=== PATIENT | male | born 1960 | race Caucasian/White ===

== ENCOUNTER 2020-02-26 06:24 | Emergency (ER) | payer BC ==
[~2020-02-26] VITALS: Ht 170.2 cm; Wt 86.2 kg
--- OUTSIDE RECORDS SUMMARY | ~2020-02-26 | XMS | Clinical Summary ---
Demographics + + + | Address | [address] | | | [place] [address] | + + + | Home Phone | | + + + | Preferred Language | Unknown | + + + | Marital Status | | + + + | Catholic Affiliation | 1041 | + + + | Race | White | + + + | Ethnic Group | Not or | + + + Author + + + | Author | [facility] | | | and [place] | + + + | Organization | [facility] | | | and [place] | + + + | Address | Unknown | + + + | Phone | Unavailable | + + + Support + + + + + | Name | Relationship | Address | Phone | + + + + + | Petr Rivera | ECON | Unknown | | + + + + + | Petr Rivera | ECON | [place] [address] | | + + + + + Care Team Providers + +------+ + | Care Escrow Officer Name | Role | Phone | + +------+ + | Regine Tate PA-C | PCP | | + +------+ + Allergies Not on File Medications Not on file Active Problems Not on file Social History + +-------+ +--------+------+ | Tobacco Use | Types | Packs/Day | Years | Date | | | | | Used | | + +-------+ +--------+------+ | Never Assessed | | | | | + +-------+ +--------+------+ + + + | Sex Assigned at | Date Recorded | | | | + + + | Not on file | | + + + Last Filed Vital Signs Not on file Plan of Treatment + + +-------+ + | Health Maintenance | Due Date | Last | Comments | | | | Done | | + + +-------+ + | Vaccine: | | | | | Dtap/Tdap/Td (1 - | 0 | | | | Tdap) | | | | + + +-------+ + | Vaccine: Zoster (1 | | | | | of 2) | 1 | | | + + +-------+ + | Vaccine: Influenza | | | | | (#1) | 0 | | | + + +-------+ + Results Not on filefrom Last 3 Months"
--- OUTSIDE RECORDS SUMMARY | ~2020-02-26 | XMS | Encounter Summary ---
Demographics + + + | Address | [address] | | | [place] [address] | + + + | Home Phone | | + + + | Preferred Language | Unknown | + + + | Marital Status | | + + + | Confucianism Affiliation | 1041 | + + + | Race | White | + + + | Ethnic Group | Not or | + + + Author + + + | Author | [facility] | | | and [place] | + + + | Organization | [facility] | | | and [...] + | Petr Rivera | ECON | [place] [address] | | + + + + + Care Team Providers + +------+ + | Care Equipment Scheduler Name | Role | Phone | + +------+ + PCP | Unavailable | + +------+ + Encounter Details +--------+ + + + + | Date | Type | Department | Care Team | Description | +--------+ + + + + | 09/12/ | Hospital | [facility] | [place], | AMI NOS, unspecified | | 2010 - | Encounter | CONVERSION DEP [phone] | Avelino Freire, | (FORMERLY [facility]) | | | | [address] | [address] | | | 09/14/ | | [place], [place] | [place], [place] | | | 2010 | | [address] | [phone] | | | | | [phone] | [phone] | | | | | | | | +--------+ + + + + Social History + +-------+ +--------+------+ | Tobacco [...] on file | | + + + documented as of this encounter Plan of Treatment Not on filedocumented as of this encounter Procedures + +--------+ + + + | Procedure Name | Priori | Date/Time | Associated Diagnosis | Comments | | | ty | | | | + +--------+ + + + | CV CARDIAC PROCEDURE | Routin | 09/12/2010 | | Results for this | | | e | 4:45 PM | | procedure are in the | | | | PST | | results section. | + +--------+ + + + | CV CARDIAC PROCEDURE | Routin | 09/12/2010 | | Results for this | | | e | 4:45 PM | | procedure are in the | | | | PST | | results section. | + +--------+ + + + documented in this encounter Results CV CARDIAC PROCEDURE (09/12/2010 4:45 PM PST) + + | Specimen | + + | | + + + + + | Narrative | Performed At | + + + | PROCEDURES 1. Left heart catheterization and coronary angiography. | | | 2. Intercoronary stent implantation into the right coronary artery. | | | OPERATIVE NOTE The patient came in as an acute inferior myocardial | | | infarction. RESULTS Aortic pressure 98/73, with a mean of 86. | | | Left ventricular pressure is 106/22, with an EDP of 38. | | | ARTERIOGRAPHY 1. The left main coronary artery is normal. 2. The | | | left anterior descending has a proximal 30% to 40% smooth | | | narrowing. 3. The left circumflex is a small nondominant artery. It | | | is angiographically unremarkable. 4. 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 | | | LEFT VENTRICULOGRAM The left ventriculogram done after intervention | | | showed inferobasal hypokinesis to akinesis with overall ejection | | | fraction of 50%. DESCRIPTION OF PROCEDURE I elected to intervene | | | upon the right coronary artery. A 6-Ghanaian Lee right guide | | | catheter was placed in the right coronary os, and an 0.14 Exercise Specialist-50 | | | guidewire was advanced across the total occlusion with minimal | | | resistance. A 3 x 20 mm Harrold angioplasty balloon was advanced to the | | | total occlusion, inflated up to 8 atmospheres for 20 seconds, | | | deflated and then smoothly withdrawn. This did open up the artery | | | nicely. A 4 x 18 mm Vision stent catheter was then placed with cine | | | assistance and inflated up to 11 atmospheres for 15 seconds, deflated | | | and then reinflated to 10 atmospheres for 10 seconds. Hand injections | | | showed excellent results with 0% residual stenosis. There was minor | | | nonobstructive disease diffusely down the vessel. Pharmacologically, | | | he came in on a heparin drip, and he was give an additional 2000 | | | units of intervascular heparin. An ACT was 246 seconds prior to the | | | beginning of the interventional portion of the case. He was given a | | | double bolus and drip of Integrilin and orally loaded with Plavix at | | | the termination of the case. ESTIMATED BLOOD LOSS Less than 50 | | | mL. P P | | | [id number]/[id number]/ Read by AVELINO CHATMAN MD 09/12/2010 | | | 04:52 P Electronically signed by Avelino Chatman MD on | | | 07/23/2011 3:10 PM | | + + + + + | Procedure Note | + + | Ryan, Rad Conversion - 03/04/2019 5:16 PM PDT PROCEDURES | | 1. Left heart catheterization and coronary angiography. | | 2. Intercoronary stent implantation into the right coronary artery. | | | | OPERATIVE NOTE | | The patient came in as an acute inferior myocardial infarction. | | | | RESULTS | | Aortic pressure 98/73, with a mean of 86. | | Left ventricular pressure is 106/22, with an EDP of 38. | | | | ARTERIOGRAPHY | | 1. The left main coronary artery is normal. | | 2. The left anterior descending has a proximal 30% to 40% smooth | | narrowing. | | 3. The left circumflex is a small nondominant artery. It is | | angiographically unremarkable. | | 4. The right coronary artery is a huge dominant artery that is totally | | occluded proximally. | | | | LEFT VENTRICULOGRAM | | The left ventriculogram done after intervention showed inferobasal | | hypokinesis to akinesis with overall ejection fraction of 50%. | | | | DESCRIPTION OF PROCEDURE | | I elected to intervene upon the right coronary artery. A 6-Ghanaian | | Lee right guide catheter was placed in the right coronary os, and | | an 0.14 Exercise Specialist-50 guidewire was advanced across the total occlusion with | | minimal resistance. A 3 x 20 mm Harrold angioplasty balloon was advanced to | | the total occlusion, inflated up to 8 atmospheres for 20 seconds, | | deflated and then smoothly withdrawn. This did open up the artery | | nicely. A 4 x 18 mm Vision stent catheter was then placed with cine | | assistance and inflated up to 11 atmospheres for 15 seconds, deflated | | and then reinflated to 10 atmospheres for 10 seconds. Hand injections | | showed excellent results with 0% residual stenosis. There was minor | | nonobstructive disease diffusely down the vessel. Pharmacologically, he | | came in on a heparin drip, and he was give an additional 2000 units of | | intervascular heparin. An ACT was 246 seconds prior to the beginning of | | the interventional portion of the case. He was given a double bolus and | | drip of Integrilin and orally loaded with Plavix at the termination of | | the case. | | | | ESTIMATED BLOOD LOSS | | Less than 50 mL. | | | | | | P | | P | | [facility]/[id number]/ | | | | Read by | | AVELINO CHATMAN MD 09/12/2010 04:52 P | | | | | + + CV CARDIAC PROCEDURE (09/12/2010 4:45 PM PST) + + | Specimen | + + | | + + + + + | Narrative | Performed At | + + + | PROCEDURES 1. Left heart catheterization and coronary angiography. | | | 2. Intercoronary stent implantation into the right coronary artery. | | | OPERATIVE NOTE The patient came in as an acute inferior myocardial | | | infarction. RESULTS Aortic pressure 98/73, with a mean of 86. | | | Left ventricular pressure is 106/22, with an EDP of 38. | | | ARTERIOGRAPHY 1. The left main coronary artery is normal. 2. The | | | left anterior descending has a proximal 30% to 40% smooth | | | narrowing. 3. The left circumflex is a small nondominant artery. It | | | is angiographically unremarkable. 4. 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 | | | LEFT VENTRICULOGRAM The left ventriculogram done after intervention | | | showed inferobasal hypokinesis to akinesis with overall ejection | | | fraction of 50%. DESCRIPTION OF PROCEDURE I elected to intervene | | | upon the right coronary artery. A 6-Ghanaian Lee right guide | | | catheter was placed in the right coronary os, and an 0.14 Exercise Specialist-50 | | | guidewire was advanced across the total occlusion with minimal | | | resistance. A 3 x 20 mm Harrold angioplasty balloon was advanced to the | | | total occlusion, inflated up to 8 atmospheres for 20 seconds, | | | deflated and then smoothly withdrawn. This did open up the artery | | | nicely. A 4 x 18 mm Vision stent catheter was then placed with cine | | | assistance and inflated up to 11 atmospheres for 15 seconds, deflated | | | and then reinflated to 10 atmospheres for 10 seconds. Hand injections | | | showed excellent results with 0% residual stenosis. There was minor | | | nonobstructive disease diffusely down the vessel. Pharmacologically, | | | he came in on a heparin drip, and he was give an additional 2000 | | | units of intervascular heparin. An ACT was 246 seconds prior to the | | | beginning of the interventional portion of the case. He was given a | | | double bolus and drip of Integrilin and orally loaded with Plavix at | | | the termination of the case. ESTIMATED BLOOD LOSS Less than 50 | | | mL. P P | | | CKR/[id number]/ Read by AVELINO CHATMAN MD 09/12/2010 | | | 04:52 P Electronically signed by Avelino Chatman MD on | | | 07/23/2011 3:10 PM | | + + + + + | Procedure Note | + + | Ryan, Rad Conversion - 03/04/2019 5:16 PM PDT PROCEDURES | | 1. Left heart catheterization and coronary angiography. | | 2. Intercoronary stent implantation into the right coronary artery. | | | | OPERATIVE NOTE | | The patient came in as an acute inferior myocardial infarction. | | | | RESULTS | | Aortic pressure 98/73, with a mean of 86. | | Left ventricular pressure is 106/22, with an EDP of 38. | | | | ARTERIOGRAPHY | | 1. The left main coronary artery is normal. | | 2. The left anterior descending has a proximal 30% to 40% smooth | | narrowing. | | 3. The left circumflex is a small nondominant artery. It is | | angiographically unremarkable. | | 4. The right coronary artery is a huge dominant artery that is totally | | occluded proximally. | | | | LEFT VENTRICULOGRAM | | The left ventriculogram done after intervention showed inferobasal | | hypokinesis to akinesis with overall ejection fraction of 50%. | | | | DESCRIPTION OF PROCEDURE | | I elected to intervene upon the right coronary artery. A 6-Ghanaian | | Lee right guide catheter was placed in the right coronary os, and | | an 0.14 Exercise Specialist-50 guidewire was advanced across the total occlusion with | | minimal resistance. A 3 x 20 mm Harrold angioplasty balloon was advanced to | | the total occlusion, inflated up to 8 atmospheres for 20 seconds, | | deflated and then smoothly withdrawn. This did open up the artery | | nicely. A 4 x 18 mm Vision stent catheter was then placed with cine | | assistance and inflated up to 11 atmospheres for 15 seconds, deflated | | and then reinflated to 10 atmospheres for 10 seconds. Hand injections | | showed excellent results with 0% residual stenosis. There was minor | | nonobstructive disease diffusely down the vessel. Pharmacologically, he | | came in on a heparin drip, and he was give an additional 2000 units of | | intervascular heparin. An ACT was 246 seconds prior to the beginning of | | the interventional portion of the case. He was given a double bolus and | | drip of Integrilin and orally loaded with Plavix at the termination of | | the case. | | | | ESTIMATED BLOOD LOSS | | Less than 50 mL. | | | | | | P | | P | | CKR/[id number]/ | | | | Read by | | AVELINO CHATMAN MD 09/12/2010 04:52 P | | | | | + + documented in this encounter Visit Diagnoses + + | Diagnosis | + + | Acute myocardial infarction, unspecified site, episode of care unspecified | + + documented in this encounter"
[~2020-02-26 06:24] MED LIST: CYCLOBENZAPRINE5 MG PO; LOVASTATIN10 MG PO; MOBIC15 MG PO; NEURONTIN300 MG PO; OMEPRAZOLE20 M1 PO; POTASSIUM99 M1 PO; SYNTHROID137 MCG PO; TOPROL XL25 MG PO; WELLBUTRIN XL150 MG PO
[2020-02-26] MEDS ORDERED: LEVOTHYROXINE150 MCG PO (06:39)
[2020-02-26] MEDS ORDERED: ATORVASTATIN CA40 MG PO (06:39)
--- NOTE | 2020-02-26 16:39 | EKG ---
[facility] [address] [place], [place] [address] Signed Sinus rhythm with short IN Inferior-posterior infarct , age undetermined Abnormal ECG No previous ECGs available Confirmed by SANDIE KIRBY DO ([id number]) on 02/26/2020 4:39:34 PM Electronically Signed By: SANDIE KIRBY DO 02/26/20 1639 PATIENT NAME: KEVIN ALARCON Electrocardiogram DATE OF : 62 PHYSICIAN: SANDIE KIRBY DO REPORT #: [id number] REPORT IS CONFIDENTIAL AND NOT TO BE RELEASED WITHOUT AUTHORIZATION
== END 2020-02-26 09:35 | disposition short-term general hospital (02) ==
LOC: ED 06:24
DX: I63.9 Cerebral infarction, unspecified (principal); I25.2 Old myocardial infarction; I10 Essential (primary) hypertension; E03.9 Hypothyroidism, unspecified; F17.200 Nicotine dependence, unspecified, uncomplicated; Z79.899 Other long term (current) drug therapy
CPT/HCPCS: 70450; 70496; 70498; 71045; 80053; 83735; 84484; 85025; 85610; 85730; 93005; 93010; 96374; 99284-25; J2997; Q3014

== ENCOUNTER 2024-11-27 05:25 | Day surgery (SDC) | payer BC ==
[2024-10-11 15:22] VITALS: BP 147/86
[2024-11-16 14:27] VITALS: BP 160/78
[2024-11-16 14:37] VITALS: BP 160/78
[2024-11-27] VITALS (12 sets, daily range): BP systolic 101–153; BP diastolic 53–82
[~2024-11-27] VITALS: Ht 170.2 cm; Wt 96.4 kg
[~2024-11-27 05:25] MED LIST changes: +ATORVASTATIN CA40 MG PO; +BAYER CHEWABLE81 MG PO; +CRESTOR40 MG PO; +FLUTICASONE PRO12 GM INH; +HYDROCODON-ACE1 EA10 PO; +HYDROCODONE BIT10 MG PO; +LACTATED RINGER'S 1,000 ML IV SCH; +LEVOTHYROXINE150 MCG PO; +LEVOTHYROXINE175 MCG PO; +METOPROLOL SUCC50 MG PO; +TRAMADOL HCL50 MG PO; +VARENICLINE TART1 MG PO; +XOPENEX HFA15 GM INH
[2024-11-27] MEDS ORDERED: SODIUM CHLORIDE 0.9% 500 ML IV ONE (06:21)
[2024-11-27] MEDS ORDERED: ondansetron HCL 4 MG/2 ML VIAL ONE (06:48)
[2024-11-27] MEDS ORDERED: MIDAZOLAM HCL 2 MG/2 ML VIAL ONE (06:48)
[2024-11-27] MEDS ORDERED: fentaNYL citrate 100 MCG/2 ML VIAL ONE (06:48)
[2024-11-27] MEDS ORDERED: propofoL 200 MG/20 ML VIAL ONE ×6 (06:48→08:53)
[2024-11-27] MEDS ORDERED: LIDOCAINE HCL 2% 5 ML SDV ONE (06:48)
[2024-11-27] MEDS ORDERED: BUPIVACAINE 0.75% IN DEXTROSE 2 ML AMP ONE (06:49)
[2024-11-27] MEDS ORDERED: ondansetron HCL 4 MG TAB PO SCH (07:00)
[2024-11-27] MEDS ORDERED: IBLOOD GLUCOSE TEST STRIP 1 EA TEST VI PRN ×2 (07:00→08:00)
[2024-11-27] MEDS ORDERED: LIDOCAINE HCL 1% 5 ML SDV INJ ONE (07:00)
[2024-11-27] MEDS ORDERED: PANTOPRAZOLE SODIUM 40 MG TABEC PO SCH (07:00)
[2024-11-27] MEDS ORDERED: TRANEXAMIC ACID IN NACL,ISO-OS 1,000 MG/100 ML PIGGYBACK IV SCH ×2 (07:00→12:15)
[2024-11-27] MEDS ORDERED: INTRA-ARTICULAR ANALGESIC INJECTION XX SCH (07:00)
[2024-11-27] MEDS ORDERED: GABAPENTIN 600 MG TAB PO SCH (07:00)
[2024-11-27] MEDS ORDERED: OXYCODONE HCL 5 MG TAB PO SCH (07:00)
[2024-11-27] MEDS ORDERED: CEFAZOLIN SODIUM 2 GM/20 ML SYR IV SCH ×2 (07:00→15:00)
--- NOTE | 2024-11-27 07:17 | NUR ---
PT NOT AVAILABLE FOR VISIT. PROVIDED PRAYER.
[2024-11-27] MEDS ORDERED: ACETAMINOPHEN 1,000 MG/100 ML VIAL ONE (07:34)
[2024-11-27] MEDS ORDERED: LABETALOL HCL 20 MG/4 ML VIAL ONE (07:47)
[2024-11-27] MEDS ORDERED: LACTATED RINGER'S 1,000 ML IV ONE (07:55)
[2024-11-27] MEDS ORDERED: fentaNYL citrate 50 MCG/ML SDV IV PRN (08:00)
[2024-11-27] MEDS ORDERED: PROCHLORPERAZINE EDISYLATE 10 MG/2 ML VIAL IV PRN (08:00)
[2024-11-27] MEDS ORDERED: ondansetron HCL 4 MG/2 ML VIAL IV PRN (08:00)
[2024-11-27] MEDS ORDERED: droPERidol 5 MG/2 ML VIAL IV PRN (08:00)
[2024-11-27] MEDS ORDERED: NALOXONE HCL 0.4 MG SYR IV PRN (08:00)
[2024-11-27] MEDS ORDERED: HYDROmorphone HCL 1 MG/ML SYR IV PRN (08:00)
[2024-11-27] MEDS ORDERED: hydrALAZINE HCL 20 MG/ML VIAL ONE (08:56)
[2024-11-27] MEDS ORDERED: KETOROLAC TROMETHAMINE 30 MG/ML VIAL IV PRN (09:15)
[2024-11-27] MEDS ORDERED: OXYCODONE HCL 5 MG TAB PO PRN (09:15)
[2024-11-27] MEDS ORDERED: DICLOFENAC SODI75 MG PO (09:25)
[2024-11-27] MEDS ORDERED: ACETAMINOPHEN500 MG PO (09:25)
[2024-11-27] MEDS ORDERED: GABAPENTIN300 MG PO (09:25)
[2024-11-27] MEDS ORDERED: OXYCODONE HCL5 MG PO (09:25)
[2024-11-27] MEDS ORDERED: CEFUROXIME250 MG PO (09:25)
[2024-11-27] MEDS ORDERED: ASPIRIN325 MG PO (09:25)
[2024-11-27] MEDS ORDERED: SENNA LAX8.6 MG PO (09:26)
[2024-11-27] MEDS ORDERED: TRANEXAMIC ACID IN NACL,ISO-OS 200 ML IV ONE (09:46)
--- NOTE | 2024-11-27 10:21 | NUR ---
11/27/24 1021 Etta Gee 0978 PT ARRIVED IN PACU NON RESPONSIVE TO NOXIOUS STIMULI WITH OPA IN PLACE. 0944 PT REACTIVE. OPA REMOVED. 0955 PT VISITING WITH STAFF. NO C/O'S. 1005 PELVIS XRAY DONE. 1010 CRYO CUFF PLACED ON R HIP. 1015 TO DS. REPORT GIVEN TO RN.
--- NOTE | 2024-11-27 10:26 | NUR ---
1015- PT ARRIVED BACK TO DS ON RA, DROWSY, AND SIPPING ON ICE WATER. PT ANSWERS QUESTIONS APPROPRIATELY. REPORT RECEIVED FROM DIRECTOR TRUST AND SURGICAL SITE VISUALIZED. DRSG TO R HIP APPEARS CDI. PT REPORTS PAIN IN R HIP TO BE 4/10 AND WOULD LIKE TO TRY SOME ORAL PAIN MEDS. PT DENIES NAUSEA WHEN ASKED. CRYO CUFF IN PLACE TO R HIP. R LEG ELEVATED WITH HEEL FLOATS AND FOOT PUMPS IN PLACE. ALFONSO HOSE ON. PT PROVIDED REFILL ON ICE WATER AND GIVEN PUDDING AND CASEY CRACKERS. NOTED PTS SAO2 FLUCTUATING BETWEEN 88-91% ON RA. PT DROWSY AND NOTED TO DOZING ON AND OFF. PT EASILY AROUSES AND ENCOURAGED TO COUGH AND DEEP BREATH. SATS RISE TO 91% AND THEN DECREASE AGAIN BACK TO 88%. PT PLACED ON 2L/NC. SATS RISE TO 93%. PT INSTRUCTED IN USE OF IS AND DEMONSTRATES PROPER USE. SATS STABLE BETWEEN 92-94% ON 2L/NC. ALL QUESTIONS ANSWERED. CALL LIGHT, ICE WATER, AND SNACKS WITHIN PT REACH. BED IN LOW POSITION, WHEELS LOCKED, BILAT RAILS IN PLACE FOR SAFETY. 1026-PO PAIN MEDS GIVEN PER EMAR. PT ATE ALL PUDDING AND CONT TO SIP ON WATER. CALL LIGHT WITHIN PT REACH. PT DOZING ON AND OFF. SPINAL LEVEL AT L4.
--- NOTE | 2024-11-27 11:31 | NUR ---
1115-INTO PTS ROOM FOR ROUTINE REASSESSMENT. PT NOTED TO BE RESTING QUIETLY W/EYES CLOSED. AROUSES EASILY TO VERBAL STIMULI. VS TAKEN. IV SITE ASSESSED. PT DENIES NAUSEA WHEN ASKED. SURGICAL SITE VISUALIZED AND NO ACUTE CHANGES NOTED FROM INITIAL ASSESSMENT. SPINAL LEVEL NOW L5. PT REMAINS UNABLE TO WIGGLE TOES. PT REPORTS PAIN IN R HIP TO BE AT 7/10. PT REQUESTING ADDITIONAL PAIN MEDICATION. LUNCH ORDER TAKEN. BED IN LOW POSITION, WHEELS LOCKED, BILAT RAILS IN PLACE. SATS REMAIN STABLE ON 2L/NC AT 93-94%. BREATHING APPEARS EVEN AND UNLABORED. 1120-PT GIVEN 2ND TAB OF OXYCODONE TO TITRATE TO MAX DOSE OF 10 MG D/T INCREASED PAIN REPORT. PT RATES PAIN 7/10. CRYO CUFF REPOSITIONED WELL. 1130-PTS LUNCH ORDER CALLED TO KITCHEN.
--- NOTE | 2024-11-27 12:00 | NUR ---
PT TITRATED TO RA. SATS STABLE AT 95-96% ON RA. RR 16. BREATHING APPEARS EVEN AND UNLABORED.
--- NOTE | 2024-11-27 12:15 | NUR ---
INTO PTS ROOM FOR ROUTINE REASSESSMENT. VS TAKEN. IV SITE ASSESSED AND SL'D. PT TAKING PO FOOD AND FLUIDS WELL AND DENIES NAUSEA WHEN ASKED. SURGICAL SITE VISUALIZED AND NO ACUTE CHANGES NOTED FROM INITIAL ASSESSMENT. CRYO CUFF REMAINS IN PLACE TO R HIP AREA. PT RATES PAIN IMPROVED AT 3/10 AND FEELS THIS TO BE A TOLERABLE LEVEL OF PAIN FOR HIM. PT FRIEND AT BEDSIDE VISITING WITH HIM. LUNCH DELIVERED AND PT ASSISTED IN SITTING UP TO EAT. ALL QUESTIONS ANSWERED. SPINAL LEVEL AT S1. PUT UNABLE TO WIGGLE TOES OR LIFT LEG OFF BED. PT DENIES URGE TO VOID WHEN ASKED. CALL LIGHT WITHIN PT REACH. FALL PREVENTIONS IN PLACED.
--- NOTE | 2024-11-27 13:10 | NUR ---
INTO PTS ROOM FOR ROUTINE REASSESSMENT. VS TAKEN. IV SITE ASSESSED. SURGICAL SITE VISUALIZED. NO ACUTE CHANGES NOTED FROM INITIAL ASSESSMENT. PT REPORTS PAIN TOLERABLE AT 4/10 IN R HIP. CRYO CUFF IN PLACE. PT DENIES NAUSEA AND URGE TO VOID WHEN ASKED. SPINAL WORN OFF. PT ABLE TO WIGGLE TOES AND LIFT LEG OFF BED. ALL QUESTIONS ANSWERED. CALL LIGHT WITHIN PT REACH. FALL PREVENTIONS IN PLACE. PTS FRIEND REMAINS AT BEDSIDE VISITING WITH PT.
--- NOTE | 2024-11-27 13:15 | NUR ---
PHYSICAL THERAPY IN TO WORK WITH PT FOR ASSESSMENT.
--- NOTE | 2024-11-27 13:25 | NUR ---
PT VOIDED APPROX 250 ML OF CLR, YELLOW URINE INTO URINAL WHILE WORKING WITH PHYSICAL THERAPY.
--- NOTE | 2024-11-27 14:05 | NUR ---
1405-RECEIVED REPORT FROM PHYSICAL THERAPIST ENDY THAT PT PASSED PHYSICAL THERAPY EVAL. RECEIVED REPORT FROM OPERATING MANAGER KELLI AND BHAVNA ESTRADA THAT PT WAS IN ROOM GETTING DRESSED. PTS FRIEND IN ROOM WELL.
[2024-11-27] MEDS ORDERED: GABAPENTIN 300 MG CAP PO SCH (15:00)
[2024-11-27] MEDS ORDERED: ACETAMINOPHEN 500 MG TAB PO SCH (15:00)
--- NOTE | 2024-11-27 15:30 | NUR ---
PT ARRIVED TO UNIT VIA STRETCHER AND ON RA, PT WAS ABLE TO STAND AND TRANSFER INTO BED, PT HAS CRYO CUFF IN PLACE WITH NEW ICE, CPOX IN PLACE, AND ON RA. PT HAS NO CURRENT CONCERNS AT THIS TIME AND HAS CALL LIGHT IN REACH.
--- NOTE | 2024-11-27 15:45 | NUR ---
1411-CALL PLACED TO DR. REBOLLEDO TO INFORM OF PT PASSING PHYSICAL THERAPY EVAL AND TO GET DC ORDERS. WHILE ON PHONE WITH DR. REBOLLEDO, A LOUD CRASH AND YELL WAS HEARD FROM PTS ROOM. INFORMED DR. REBOLLEDO THAT THIS RN WOULD HAVE TO CALL HIM BACK AND CALL ENDED. THIS RN WELL AT PHYSICAL THERAPIST LISA SCHUMACHER NURSE LACIE HUGGINS, AND SEAN RN RESPONDED TO PTS YELL AND LOUD CRASH SOUND. UPON ENTERING ROOM PT WAS OBSERVED ON FLOOR NEXT TO BED. PT SEEN LAYING ON LEFT SIDE. NO OBVIOUS INJURIES NOTED. PTS FRIEND IN ROOM AT TIME OF FALL. BOTH PT AND HIS FRIEND DENY PT HITTING HEAD OR LOC. PT REPORTS DISCOMFORT IN L WRIST R/T FALL. PT DENIES ANY INCREASED R HIP PAIN WHEN ASKED. PT ASSISTED TO SITTING POSITION AND THEN OFF FLOOR TO SITTING ON EOB WITH THE HELP OF 3 PERSON ASSIST (PHYSICAL THERAPIST ENDY, LOCKSMITH HELPER LACIE, SEAN HUGGINS) AND PTS FWW. SURGICAL SITE VISUALIZED. NO BLEEDING OR SHADOWING NOTED ON DRSG. DRSGS TO R HIP REMAIN CDI. PT ASSISTED WITH LAYING IN BED. HIPS APPEAR SYMMETRICAL AND LEGS APPEAR EQUAL IN LENGTH. PT CONT TO DENY ANY INCREASE IN R HIP PAIN. VS TAKEN. IV SITE ASSESSED. PT REPORTS FALLING WHILE USING SHOE HORN TO PUT ON HIS SHOES. PT REPORTS LOSING HIS BALANCE AND FALLING. PT CONT TO REPORT NO INCREASE IN PAIN IN R HIP AND RATES PAIN UNCHANGED AT 09/18. 1419-LOCKSMITH HELPER KELLI NOTIFIED DR. REBOLLEDO OF PTS FALL PER ABOVE. DR. REBOLLEDO WITH VERBAL ORDER TO GET XRAY OF L WRIST D/T C/O DISCOMFORT S/P FALL ON L SIDE. ORDERS PLACED IN [facility] [employer] [facility]AGING NOTIFIED. VERBAL ORDERS ALSO RECEIVED FOR PT TO GO TO MED-SURG FLOOR FOR THE NIGHT. 1422-PHYSICAL THERAPY SPOKE WITH DR. REBOLLEDO REGARDING NEW CONCERNS ABOUT PT SAFETY TO GO HOME S/P FALL WHILE DRESSING FOR DISCHARGE HOME. DR. REBOLLEDO WITH ADDITONAL VERBAL ORDERS FOR OT EVAL AND TX. ORDERS PLACED IN [employer]. 1423-NURSING CAT AND DOG BATHER NOTIFIED OF PT NEEDING ROOM. PT TO GO TO MS ROOM 109. 1425-PT ASSISTED IN DRESSING BACK INTO CLEAN GOWN, HEEL FLOATS IN PLACE. FOOT PUMPS REAPPLIED. CRYO CUFF REAPPLIED TO R HIP SURGICAL SITE. BED IN LOW POSITION, WHEELS LOCKED, CALL LIGHT WITHIN PT REACH. BILAT RAILS IN PLACE FOR SAFETY. PTS FRIEND REMAINS AT BEDSIDE. PT INFORMED HE WILL BE SPENDING THE NIGHT. PT REPORTS HE WILL NOT HAVE A RIDE HOME TOMORROW HIS FRIEND WILL BE AT WORK. WILL INFORM MS RN TO NOTIFY DISCHARGE PLANNING OF THIS CONCERN. 1435-RECEIVED CALL FOR IMAGING TO REPORT THEY WILL BE OVER TO SEE PT SOON. 1445-IMAGING HERE FOR XRAY. IMAGING REQUESTED IDENTIFICATION BRACELET AND FALL RISK BRACELET BE REMOVED FOR IMAGING TO BE COMPLETED. BRACELETS REMOVED AND NEW BRACELETS OBTAINED TO BE REPLACED ONCE IMAGING COMPLETED. 1500-NEW BRACELETS APPLIED TO PT. PT VERIFIED NAME, ON BRACELET CORRECT. 1510-INTO PTS ROOM FOR ROUTINE REASSESSMENT. VS TAKEN. IV SITE ASSESSED. SURIGCAL SITE VISUALIZED AND DRSG REMAINS CDI W/O AND SHADOWING NOTED. PT REPORTS SLIGHT INCREASE IN R HIP PAIN AND RATES AT 4/10. PT REPORTS THIS TO STILL BE TOLERABLE FOR HIM AT THIS TIME. PT DENIES ANY NAUSEA WHEN ASKED. PT EATING AND DRINKING WELL. PTS FRIEND REMAINS AT BEDSIDE. 1515-CALL PLACED TO DR. REBOLLEDO TO CLARIFY TYPE OF ADMISSION. PT TO BE ADMITTED EXTENDED RECOVERY AND HOME MEDS OKAY TO GIVE WELL CONTINUING INPATIENT MEDICATIONS. ADMISSION ORDER PLACED IN [facility]. TRANSFER MEDICATION RECONCILLIATION COMPLETED. 1525-CALLED PLACED TO MED SURG TO NOTIFY PT WOULD BE COMING. 1530-PT TAKEN TO MED SURG. REPORT GIVEN TO JULIAN HUGGINS. ALL PTS PERSONAL BELONINGS TAKEN WITH PT. PTS FRIEND ALSO WITH PT TO MED SURG ROOM 109. PT STOOD USING FWW TO TRANFER FROM RNEY TO BED. VS TAKEN. FOOT PUMPS AND HEEL FLOATS IN PLACE WELL CRYO CUFF APPLIED TO R HIP SURGICAL SITE. SURGICAL SITE WAS VISUALIZED WITH ELECTRICAL CAD DESIGNER. MEDICATION REC TRANSFER ORDERS PROVIDED TO JULIAN HUGGINS. ALL QUESTIONS ANSWERED. BED IN LOW POSITION, WHEELS LOCKED, CALL LIGHT WITHIN PT REACH. BILAT RAILS IN PLACE.
--- NOTE | 2024-11-27 16:31 | NUR ---
PT SITTING UP IN BED AT THIS TIME, PT HAS PAIN 5-10 AND WAS GIVEN SCHEDULED DOSE OF TYLONOL, PT HAS NO FURTHER CONCERNS AT THIS TIME AND HAS CALL LIGHT IN REACH AT THIS TIME.
--- NOTE | 2024-11-27 16:46 | NUR ---
MD REBOLLEDO CONTACTED CONCERNING RT EVAL FOR PT. MD REBOLLEDO GAVE VERBAL ORDER FOR RT EVAL SO PT CAN HAVE AT HOME PRN BREATHING TREATMENTS IF NEEDED.
[2024-11-27] MEDS ORDERED: levalbuterol HCL 1.25 MG/0.5 ML VIAL INH PRN (17:00)
--- NOTE | 2024-11-27 17:19 | NUR ---
MED REC COMPLETE
--- NOTE | 2024-11-27 18:04 | NUR ---
PT REPORTED PAIN IN THE RIGHT HIP 7-10 PT GIVEN PRN OXY (SEE EMAR). PT HAS CRYO CUFF IN PLACE WITH SURGICAL SITES CDI AT THIS TIME. PT HAS NO OTHER CONCERNS AND HAS CALL LIGHT IN REACH.
--- NOTE | 2024-11-27 19:05 | NUR ---
REPORT RECEIVED FROM PROMISE HUGGINS. pt RESTING IN THE BED. BOARD UPDATED. pt DENIES ANY OTHER NEEDS AT THIS TIME. CALL LIGHT WITHIN REACH.
[2024-11-27] MEDS ORDERED: BUDESONIDE 0.5 MG/2 ML VIAL INH SCH (20:00)
[2024-11-27] MEDS ORDERED: SENNOSIDES 1 TAB PO SCH (21:00)
[2024-11-27] MEDS ORDERED: ASPIRIN 325 MG TAB PO SCH (21:00)
--- NOTE | 2024-11-27 21:20 | NUR ---
ASSESSMENT AND VITAL SIGNS DONE. pt RESTING IN THE BED. DRESSING ON RIGHT HIP CDI. CRYO CUFF FILLED WITH ICE. WATER REFRESHED. pt C/O 10/19 PAIN. SCHEDULED MEDS ADMINISTERED. pt DENIES ANY OTHER NEEDS AT THIS TIME. CALL LIGHT WITHIN REACH. SCD'S ON. ALFONSO CARLTON ON.
--- NOTE | 2024-11-27 23:11 | NUR ---
IN RM TO ADMINISTER SCHEDULED IV ABX. pt RESTING IN THE BED. pt DENIES ANY OTHER NEEDS AT THIS TIME. CALL LIGHT WITHIN REACH.
[2024-11-28] VITALS (11 sets, daily range): BP systolic 114–147; BP diastolic 63–89
--- NOTE | 2024-11-28 01:35 | NUR ---
ASSESSMENT AND VITAL SIGNS DONE. DRESSING CDI. CRYO CUFF FILLED. SCD'S ON. TEDHOSE ON. pt DENIES ANY PAIN AT THIS TIME. pt DENIES ANY OTHER NEEDS AT THIS TIME. CALL LIGHT WITHIN REACH.
--- NOTE | 2024-11-28 03:32 | NUR ---
pt C/O 12/19 PAIN. PRN PAIN MEDS ADMINISTERED. pt DENIES ANY OTHER NEEDS AT THIS TIME. CALL LIGHT WITHIN REACH.
--- NOTE | 2024-11-28 05:38 | NUR ---
pt C/O 12/19 PAIN AFTER HE GOT UP TO THE BR TO USE THE URINAL. pt BACK TO THE CHAIR FOR THE MORNING. PRN PAIN MEDS ADMINITERED. CRYO CUFF ON. TEDHOSE ON. pt DENIES ANY OTHER NEEDS AT THIS TIME. CALL LIGHT WITHIN REACH.
--- NOTE | 2024-11-28 07:10 | NUR ---
VERBAL REPORT RECEIVED FROM BHAVNA ALEXANDER. PT RESTS IN RECLINER, EYES CLOSED, RESP EVEN AND UNLABORED.
[2024-11-28] MEDS ORDERED: DICLOFENAC SOD 75 MG TABEC PO SCH (08:00)
[2024-11-28] MEDS ORDERED: cefuroxime axetiL 250 MG TAB PO SCH (09:00)
--- NOTE | 2024-11-28 09:28 | NUR ---
UR CLINICAL REVIEW: [facility] [place] REVIEW MEETS CRITERIA FOR HIP ARTHROPLASTY DUE TO [facility] 11/27/24 @ 1522 ORDER MATCHES REG NO AUTH REQUIRED FOR EXTENED SATY PER INSURANCE GUIDELINES DISCHARGE TO HOME AFTER EVAL WITH PT/OT
--- NOTE | 2024-11-28 10:33 | NUR ---
PT NOT AVAILABLE FOR VISIT. PROVIDED PRAYER.
--- NOTE | 2024-11-28 11:11 | NUR ---
WORKING WITH PT
--- NOTE | 2024-11-28 11:13 | NUR ---
INTERACTED WITH PT WHILE AMBULATING IN HALLWAY. FACILITATED INTERACTION WITH THERAPY ANIMAL. PT EXPRESSED HOPE, DESCRIBED ANIMAL INTERACTIONS IN HIS LIFE.
--- NOTE | 2024-11-28 13:28 | NUR ---
ALERT AND ORIENTED, UP IN RECLINER. LIVES ALONE IN SINGLE STORY HOME. HAS 2 WALKERS, CANE, SHOWER CHAIR AND TOILET RISER. HIS [id number]-[id number] IS GOING TO COME TONIGHT AND GET KEYS TO PATIENT'S HOME. PATIENT STATES HIS [id number]-CH-XFY IS GOING TO DRIVE HIM HOME TOMORROW AND STAY WITH HIM FOR A FEW DAYS BECAUSE HE DOES NOT THINK HE CAN BE ALONE AFTER FALL YESTERDAY. STATES HE IS PLANNING ON AMBULATING IN HALLWAY WITH STAFF THIS AFTERNOON WELL. NO KNOWN CM NEEDS AT THIS TIME.
--- NOTE | 2024-11-28 15:30 | NUR ---
PT REPORTS TINGLING IN RIGHT FOOT, CIRCULATION, SENSATION AND MOTION OTHERWISE INTACT TO BLE.
--- NOTE | 2024-11-28 19:05 | NUR ---
pt RESTING IN THE CHAIR. VISTOR IN RM. pt STATES HE IS DOING HIS EXERCISES. pt DENIES ANY OTHER NEEDS AT THIS TIME. CALL LIGHT WITHIN REACH.
--- NOTE | 2024-11-28 20:55 | NUR ---
ASSESSMENT AND VITAL SIGNS DONE. pt SITTING IN THE CHAIR. CRYO CUFF FILLED WITH ICE. ALFONSO HOSE ON. SCHEDULED MEDS ADMINISTERED. ICE WATER REFRESHED. SNACK PROVIDED. pt DENIES ANY OTHER NEEDS AT THIS TIME. CALL LIGHT WITHIN REACH. DRESSING ON RIGHT HIP CDI.
--- NOTE | 2024-11-28 22:41 | NUR ---
pt RESTING IN THE CHAIR WITH EYES CLOSED. RR EVEN AND UNLABORED. CALL LIGHT WITHIN REACH.
--- NOTE | 2024-11-28 23:56 | NUR ---
pt CALLED TO USE THE BR. pt SBA WITH FWW. CPOX ON. CRYO CUFF ON. TEDHOSE ON. pt DENIES ANY OTHER NEEDS AT THIS TIME. CALL LIGHT WITHIN REACH.
--- NOTE | 2024-11-29 01:53 | NUR ---
pt RESTING IN THE BED WITH EYES CLOSED. RR EVEN AND UNLABORED. CALL LIGHT WITHIN REACH.
[2024-11-29 04:03] VITALS: BP 137/65
[2024-11-29 04:05] VITALS: BP 137/65
--- NOTE | 2024-11-29 04:07 | NUR ---
IN TO CHECK ON pt AND FILL CRYO CUFF. VITAL SIGNS DONE. pt BACK TO THE BED. pt WAS UP TO THE BR. SCD'S ON. CPOX ON. ALFONSO HOSE ON. pt C/O 02/18 PAIN. PRN PAIN MEDS ADMINISTERED. pt DENIES ANY OTHER NEEDS AT THIS TIME. CALL LIGHT WITHIN REACH.
--- NOTE | 2024-11-29 05:18 | NUR ---
IN RM TO REASSESS pt PAIN. pt C/O 09/18 PAIN. pt STATES THAT IS TOLERABLE FOR HIM. pt DENIES ANY OTHER NEEDS AT THIS TIME. CALL LIGHT WITHIN REACH.
--- NOTE | 2024-11-29 07:08 | NUR ---
VERBAL REPORT RECIVED BY BENJAMIN HUGGINS, PT UP IN RECLINER, RESTING WITH EYES CLOSED.
[2024-11-29 07:54] VITALS: BP 132/80
[2024-11-29 07:58] VITALS: BP 132/80
--- NOTE | 2024-11-29 08:30 | NUR ---
RE-FILLED PATIENT'S CRYO AT 0830 THIS MORNING. PATIENT ALSO BRUSHED HIS TEETH AND WASHED HIS FACE. PATIENT IS SITTING UP IN HIS CHAIR. BED LINENS CHANGED.
--- NOTE | 2024-11-29 09:42 | NUR ---
VISITED DURING SPIRITUAL CARE ROUNDS. PT IN OVERALL GOOD SPIRITS, HOPEFULL FOR TIMELY DISCHARGE, NO IMMEDIATE NEEDS. HACK SAW OPERATOR PROVIDED SUPPORTIVE PRESENCE, HOSPITALITY, PRAYER, FACILITATED INTERACTION WITH THERAPY ANIMAL. PT EXPRESSED GRATITUDE, XAEL SOURCE OF STRENGTH.
[2024-11-29 11:27] VITALS: BP 157/88
--- NOTE | 2024-11-29 11:50 | NUR ---
DISCUSSED DISCHARGE INSTRUCTIONS WITH PT AND PT FRIEND, BOTH VERBALIZED UNDERSTANDING. PT DRESSES SELF. PT RETURN DEMONSTRATES IS USE. DISCUSSED AND DEMONSTRATED HOW TO USE CRYO-CUFF. IS, CRY-CUFF, AND TEDS SENT HOME WITH PT. PT LEAVE WITH BELONGINGS. INCLUDING PHONE, BLACK SHIRT, BLACK SHOES, SWEATPANTS, GLASSES, AND PHONE. PT LEAVES UNIT VIA WHEELCHAIR ESCORTED BY JUANA MCMILLAN TO PRIVATE CAR, DRIVEN BY FRIEND
--- NOTE | 2024-12-08 12:41 | OR ---
[facility] [address], [place] [address] Signed DATE OF OPERATION: 11/27/2024 SURGEON: Peña Schroeder MD PREOPERATIVE DIAGNOSIS: Degenerative joint disease, right hip. POSTOPERATIVE DIAGNOSIS: Degenerative joint disease, right hip. PROCEDURE PERFORMED: Right total hip arthroplasty. SYSTEMS TEST ENGINEER: Raquel Jones PA-C. Raquel was present and critical for all portions of procedure. ANESTHESIA: Spinal. BLOOD LOSS: 300 mL. IMPLANTS: Bin Secure-Fit Advanced size 7, -5 head and a 58 cup. 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 Risks and benefits of operative treatment were discussed with him and after medical clearance, he was taken to the operating room, placed in left lateral decubital position with an axillary roll. All downside pressure points were well padded. The hip was prepped and draped in a standard sterile fashion. Both hips were extremely stiff both in flexion and abduction only up and about 15 degrees. The computer array for the Adonay system was then placed in the posterior iliac crest 3 fingerbreadths posterior to the ASIS. This was done through separate stab incisions. The hip was then approached through a standard anterior lateral approach, carried through the skin and subcutaneous tissue. IT band was divided longitudinally and the vastus lateralis was divided from the tip of the trochanter distally along the anterior margin. It was then subperiosteally dissected around to the level of the lesser trochanter and the gluteus medius and capsule were split from the tip of the trochanter to the acetabular rim. Electronically Signed By: PEÑA SCHROEDER MD 11/28/24 0450 Electronically Signed By: PEÑA SCHROEDER MD 11/28/24 1847 Electronically Signed By: PEÑA SCHROEDER MD 12/11/24 0649 PATIENT NAME: TIMOTHY ALARCON OPERATIVE REPORT DATE OF : 62 REPORT #: [id number] PHYSICIAN: PEÑA SCHROEDER MD PCP: GINNY FLORENTINO REPORT IS CONFIDENTIAL AND NOT TO BE RELEASED WITHOUT AUTHORIZATION [facility] [address], [place] [address] Signed This was peeled off the anterior neck. The hip was again very stiff and capsulotomies were performed anteriorly and posteriorly of a partial nature. The hip was then dislocated with some difficulty. The femoral neck cut made one fingerbreadth above the lesser trochanter. The femoral head was removed and the periacetabular soft tissue was removed. We had extreme difficulty mobilizing the femur posteriorly to get access to the acetabulum. Because of this, we aborted the Adonay procedure and went with hand reaming. It was then reamed up to a 58. The 58 found to be well fitting. No medial break through. The 58 cup was then impacted in 40 degrees of abduction and 20 degrees of anteversion. The screw was placed in the posterior superior quadrant. The polyethylene was then snapped into position. There were no overhanging osteophytes. Attention was turned to the proximal femur. There were large osteophytes posteriorly. These have been removed to allow visualization of the acetabulum. The proximal femur was opened using the robbieie cutter, followed by the Charnley awl. The femur was quite tight distally, so we reamed up to an 8 and broached up to a 7, which was found to be well fitting. It was left in position and initially a high offset and a standard offset neck were trialed with a -2.5 and -5. It was reduced with some difficulty. We did lengthen him compared to the preoperative status due to his superior migration and protrusio. We then dislocated the hip and removed the trials. The femoral trial was impacted until it was well-seated at the same level. -5 head was impacted and well-seated on a cleaned trunnion. The hip was then reduced again with mild difficulty. He had good range of motion going to 100 of flexion with 30 of internal and external rotation and good leg lengths. The wound was copiously irrigated with one bottle of Surgiphor followed by normal saline. The periarticular soft tissues were injected with 80 mL of ropivacaine and Toradol mixture. The capsule was then closed using #2 FiberWire. The vastus and iliotibial band layers were closed independently using #2 Stratafix, subcu with 0 Stratafix and the skin with 3-0 Stratafix. Wound was sealed with LiquiBand and Steri-Strips and dressed with an Acticoat-7 dressing. He tolerated the procedure well. All sponge, needle, and instrument counts were correct. Peña Schroeder MD BA/MODL /[id number] Electronically Signed By: PEÑA SCHROEDER MD 11/28/24 0450 Electronically Signed By: PEÑA SCHROEDER MD 11/28/24 1847 Electronically Signed By: PEÑA SCHROEDER MD 12/11/24 0649 PATIENT NAME: TIMOTHY ALARCON OPERATIVE REPORT DATE OF : 62 REPORT #: [id number] PHYSICIAN: PEÑA SCHROEDER MD PCP: GINNY FLORENTINO REPORT IS CONFIDENTIAL AND NOT TO BE RELEASED WITHOUT AUTHORIZATION [address] [place], [place] [address] Signed Copies: ~ Electronically Signed By: PEÑA SCHROEDER MD 11/28/24 0450 Electronically Signed By: PEÑA SCHROEDER MD 11/28/24 1847 Electronically Signed By: PEÑA SCHROEDER MD 12/11/24 0649 PATIENT NAME: TIMOTHY ALARCON OPERATIVE REPORT DATE OF : 62 REPORT #: [id number] PHYSICIAN: PEÑA SCHROEDER MD PCP: GINNY FLORENTINO REPORT IS CONFIDENTIAL AND NOT TO BE RELEASED WITHOUT AUTHORIZATION
== END 2024-11-29 11:50 | disposition home or self-care (01) ==
LOC: MS 05:25 → DS 05:25 → MS 15:30 → DS 11-29 11:50
PROVIDERS: ATTEND Specialist
DX: M16.0 Bilateral primary osteoarthritis of hip (principal); F17.200 Nicotine dependence, unspecified, uncomplicated; Z79.899 Other long term (current) drug therapy; Z79.890 Hormone replacement therapy
CPT/HCPCS: 01214; 72170; 73110; 94640; 96374; 97110; 97116; 97161; 97166; 97530; 97535; A9270; C1713; C1776; J0131; J0360; J0690; J1885; J2003; J2250; J2405; J2704; J3010; J7040; J7121